=== PATIENT | female | born 1985 ===

== ENCOUNTER 2016-12-11 19:05 | Emergency (ER) | payer MEDICAID ==
[2016-12-11 19:05] VITALS: BMI 32.5
[2016-12-11 19:40] VITALS: BP 140/80; PULSE 70; RESP 17; TEMP 98.1; O2SAT 98
[2016-12-11] MEDS ORDERED: Lactated Ringer's 1,000 ML in Lactated Ringer's 1,000 ML IV STA (20:06)
[2016-12-11] MEDS ORDERED: Dextrose 5%/Lactated Ringer's 1,000 ML IV SCH (20:15)
[2016-12-11 20:26] LABS: RBC URINE 2 /hpf (0-3); URINE BACTERIA FEW (<OCC); URINE BILIRUBIN NEGATIVE (NEGATIVE); URINE BLOOD NEGATIVE (NEGATIVE); URINE COLOR YELLOW (YELLOW); URINE GLUCOSE (UA) NEG (Normal); URINE KETONE NEGATIVE (NEGATIVE); URINE LEUKOCYTE ESTERASE NEG Leu/uL (Negative); URINE PROTEIN NEGATIVE (NEGATIVE); URINE UROBILINOGEN 0.2-1.0 mg/dL (0.2-1.0); WBC URINE 2 /hpf (0-5)
--- NOTE | 2016-12-11 20:37 | ED PDOC ---
HPI: Abdomen Time Seen by Provider: 12/11/16 19:41 Chief Complaint (Nursing): Abdominal Pain Chief Complaint (Provider): Abdominal Pain History Per: Patient History/Exam Limitations: no limitations Onset/Duration Of Symptoms: Days (x1 week), Persistent Outside of [place] travel?: No Current Symptoms Are (Timing): Still Present Severity: Moderate Location Of Pain/Discomfort: Suprapubic (w/radiation to back/bilateral flank) Quality Of Discomfort: Unable To Describe Associated Symptoms: Vomiting (x5 days, 2 episodes/day, non-bilious/non-bloody) , Diarrhea (x5 days, 4-5 episodes/day, non-bloody), Urinary Symptoms (hematuria ; no dysuria/frequency). denies: Other (no vaginal bleeding/discharge) Additional Complaint(s): Maggie Curran is a 31 year old female, with a past medical history inclusive of HTN (medication compliant) and anemia, who presents to the ED on 12/11/16 for the evaluation of moderate suprapubic abdominal pain that she has experienced x1 week. Pain, further described as constant, reportedly radiates into both her back and b/l flanks. Associated non-bilious/non-bloody vomiting (x5 days, 2 episodes/day) and non-bloody diarrhea (x5 days, 4-5 episodes/day) also reported in addition to some hematuria, though she denies fever, chills, dysuria, frequency, vaginal bleeding or discharge. Has taken no medications for symptom relief prior to arrival. Pertinent surgical history includes a cholecystectomy, 2 c-sections and 2 previous ectopic surgeries. Of note, patient presented to [facility] 2 weeks ago for the evaluation of a milder version of this pain, at which time she had been diagnosed with a UTI and was sent home with a Rx for a 1 week course of Cipro. Patient reports having completed the antibiotics with no improvement in symptoms. In addition, though patient's last menstrual period was as of 2 weeks ago it was reportedly both slightly heavier and 1.5 weeks later than usual. PCP: Eddie Melissa Past Medical History Reviewed: Historical Data, Nursing Documentation, Vital Signs Vital Signs: Last Vital Signs Temp 98.1 F 12/11/16 19:37 Pulse 70 12/11/16 19:37 Resp 17 12/11/16 19:37 BP 140/80 12/11/16 19:37 Pulse Ox 98 12/11/16 23:51 - Medical History PMH: Anemia, Anxiety, Asthma, Depression, HTN, Kidney Stones - Surgical History Surgical History: Cholecystectomy, (x2) Other surgeries: ectopic surgery x2 - Family History Family History: States: Unknown Family Hx - Living Arrangements Living Arrangements: With Family - Social History Current smoker - smoking cessation education provided: Yes (cigarettes) Alcohol: Social Drugs: Cannabis (occasional) - Immunization History Hx Tetanus Toxoid Vaccination: Yes Hx Influenza Vaccination: Yes (08/2015) Hx Pneumococcal Vaccination: No - Home Medications Home Medications: Ambulatory Orders Medication Instructions Recorded Cyclobenzaprine [Cyclobenzaprine 10 mg PO TID #15 tab 08/18/16 HCl] Naproxen [Naprosyn Tab] 500 mg PO Q12 #20 tab 08/18/16 oxyCODONE/Acetaminophen [Percocet 1 ea PO QID #20 tab 08/18/16 5/325 mg Tab] Dicyclomine [Bentyl] 20 mg PO BID PRN #30 tab 12/11/16 Omeprazole Magnesium [Prilosec Otc] 20 mg PO DAILY #30 tcp 12/11/16 Ondansetron [Zofran] 4 mg PO Q8H PRN #20 tab 12/11/16 - Allergies Allergies/Adverse Reactions: Allergies Allergy/AdvReac Type Severity Reaction Status Date / Time No Known Allergies Allergy Verified 08/18/16 10:04 Review of Systems ROS Statement: Except As Marked, All Systems Reviewed And Found Negative Constitutional: Negative for: Fever, Chills Gastrointestinal: Positive for: Vomiting, Abdominal Pain (suprapubic w/ radiation to back/bilateral flank), Diarrhea Genitourinary Female: Positive for: Hematuria. Negative for: Dysuria, Frequency , Vaginal Discharge, Vaginal Bleeding Physical Exam - Reviewed Nursing Documentation Reviewed: Yes Vital Signs Reviewed: Yes - Physical Exam Appears: Positive for: Well (well nourished), Non-toxic, In Acute Distress ( mild painful) Head Exam: Positive for: ATRAUMATIC, NORMOCEPHALIC Skin: Positive for: Normal Color, Warm, Dry Eye Exam: Positive for: Normal appearance Cardiovascular/Chest: Positive for: Regular Rate, Rhythm. Negative for: Murmur Respiratory: Positive for: Normal Breath Sounds. Negative for: Respiratory Distress Gastrointestinal/Abdominal: Positive for: Soft, Tenderness (diffuse but worse within LLQ; (-)McBurney's). Negative for: Mass, Distended, Guarding, Rebound Back: Positive for: L CVA Tenderness, R CVA Tenderness. Negative for: Vertebral Tenderness Neurologic/Psych: Positive for: Alert, Oriented - Laboratory Results Result Diagrams: 12/11/16 21:15 12/11/16 21:15 Urine POC: Negative Urine dip results: Negative for: Leukocyte Esterase, Blood, Nitrate, Ketones, Glucose, Bilirubin, Protein - ECG O2 Sat by Pulse Oximetry: 98 (RA) Pulse Ox Interpretation: Normal Medical Decision Making Medical Decision Makin:41 Initial Impression: abdominal pain Differential diagnoses include but are not limited to gastroenteritis, UTI, pyelonephritis, cystitis, colitis, ovarian cyst. Review of previous records indicates that patient has undergone 6 CT A/P's in her lifetime, last of which was negative for any acute findings. Will attempt to avoid further radiation exposure. Initial Plan: * US Abdomen, Complete * US Pelvis * Labs * Lactic Acid, Plasma * PTT * PT * Magnesium * Phosphorus * Upreg * Udip * Urinalysis * Urine Drug Screen * Lactated Ringer's 1000ml at 1000mls/hr * Dextrose 1000ml at 100mls/hr * Pepcid 40mg IVP * Morphine 2mg IVP * Zofran 8g IV * Toradol 30mg IV * Reevaluation Udip and Upreg are negative. 9p Labs unremarkable. BRE Melissa pt's PCP who advises that if ER workup unremarkable, pt can be seen in his office tomorrow at 8am and have same-day GI follow up. EXAM: US Pelvis Complete, Transabdominal. CLINICAL HISTORY: 31 years old, female; Pain; Pelvic pain; Additional info: Abdominal pain; LMP TECHNIQUE: Real-time transabdominal pelvic ultrasound (complete) with image documentation. EXAM DATE/TIME: 12/11/2016 8:08 PM COMPARISON: There are no prior studies for comparison. FINDINGS: Uterus: Uterus measures approximately 11.3 x 4.1 x 5.3 cm. Endometrium measures approximately 6.5 mm. Right ovary: Right ovary measures approximately 3.3 x 1.9 x 2.8 cm.There is expected blood flow on Doppler imaging no Left ovary: Left ovary measures approximately 3.1 x 2.2 x 2.7 cm. There is a small follicle in the left ovary.There is expected blood flow on Doppler imaging Fluid: There is no free fluid. IMPRESSION: Normal pelvic ultrasound Thank you for allowing us to participate in the care of your patient. Dictated and Authenticated by: Vanessa Wilkinson MD 12/11/2016 11:36 PM Eastern Time ([place] & [place]) EXAM: US Abdomen Complete. CLINICAL HISTORY: 31 years old, female; Pain; Abdominal pain; Epigastric TECHNIQUE: Real-time ultrasound of the abdomen (complete) with image documentation. EXAM DATE/TIME: 12/11/2016 8:08 PM COMPARISON: There are no prior studies for comparison. FINDINGS: Liver: Liver appears mildly enlarged. There no focal space-occupying lesions.There is hepatopedal flow in the main portal vein. Gallbladder: Gallbladder is surgically absent. Common bile duct: Common bile duct measures 3.9 mm in diameter. Pancreas: Pancreas is partially obscured by bowel gas. Kidneys: Kidneys are unremarkable. Spleen: Spleen is unremarkable. Aorta: Visualized portions of the aorta and inferior vena cava are unremarkable. Inferior vena cava: See above. IMPRESSION: Prior cholecystectomy, no ductal dilatation; mildly enlarged liver Thank you for allowing us to participate in the care of your patient. Dictated and Authenticated by: Vanessa Wilkinson MD 12/11/2016 11:32 PM Eastern Time ( & Luis) DW pt findings and plan of care. 8am follow up with [facility] and expectant GI followup urgently. Scribe Attestation: Documented by Luz Robles, acting as a scribe for Lida Stevenson MD. Provider Scribe Attestation: All medical record entries made by the Scribe were at my direction and personally dictated by me. I have reviewed the chart and agree that the record accurately reflects my personal performance of the history, physical exam, medical decision making, and the department course for this patient. I have also personally directed, reviewed, and agree with the discharge instructions and disposition. 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 Prescriptions: Dicyclomine [Bentyl] 20 mg PO BID PRN #30 tab PRN Reason: abdominal pain Omeprazole Magnesium [Prilosec Otc] 20 mg PO DAILY #30 tcp Ondansetron [Zofran] 4 mg PO Q8H PRN #20 tab PRN Reason: Nausea/Vomiting Instructions: Abdominal Pain (ED) Forms: [facility] ED School/Work Excuse
[2016-12-11 21:30] LABS: BASO # 0.1 K/uL (0.0-0.2); BASO % 0.7 % (0.0-2.0); EOS # 0.2 K/uL (0.0-0.7); EOS % 1.8 % (0.0-4.0); HEMATOCRIT 39.6 % (34.0-47.0); LYMPH # 2.5 K/uL (1.0-4.3); LYMPH % 29.7 % (20.0-40.0); MEAN CELL VOLUME 96.5 fl (81.0-99.0); MEAN CORPUSCULAR HEMOGLOBIN 32.1 pg (27.0-31.0); MEAN CORPUSCULAR HGB CONC 33.3 g/dL (33.0-37.0); MEAN PLATELET VOLUME 8.5 fl (7.2-11.7); MONO # 0.6 K/uL (0.0-0.8); MONO % 7.6 % (0.0-10.0); NEUT % 60.2 % (50.0-75.0); NRBC % 0.1 % (0.0-0.0); RED CELL DISTRIBUTION WIDTH 12.7 % (11.5-14.5); WHITE BLOOD COUNT 8.3 K/uL (4.8-10.8)
[2016-12-11 21:36] LABS: ALB/GLOB RATIO 1.4 (1.0-2.1); ALKALINE PHOSPHATASE 62 U/L (38-126); ALT/SGPT 35 U/L (9-52); AST/SGOT 27 U/L (14-36); BILIRUBIN,TOTAL 0.2 mg/dl (0.2-1.3); BLOOD UREA NITROGEN 12 mg/dl (7-17); CALCIUM 9.6 mg/dL (8.4-10.2); CARBON DIOXIDE 24 mmol/L (22-30); CHLORIDE 106 mmol/L (98-107); GFR AFRICAN-AMERICAN > 60; GLUCOSE,RANDOM 90 mg/dL (65-105); LIPASE 84 U/L (23-300); MAGNESIUM 2.1 MG/DL (1.6-2.3); PHOSPHOROUS 3.2 mg/dl (2.5-4.5); POTASSIUM 3.8 MMOL/L (3.6-5.0); SODIUM 139 mmol/l (132-148); TOTAL PROTEIN 7.7 G/DL (6.3-8.2)
[2016-12-11 21:56] LABS: PARTIAL THROMBOPLASTIN TIME 28.3 SECONDS (23.3-32.5)
--- NOTE | 2016-12-11 23:32 | US ---
EXAM: US Abdomen Complete. CLINICAL HISTORY: 31 years old, female; Pain; Abdominal pain; Epigastric TECHNIQUE: Real-time ultrasound of the abdomen (complete) with image documentation. EXAM DATE/TIME: 12/11/2016 8:08 PM COMPARISON: There are no prior studies for comparison. FINDINGS: Liver: Liver appears mildly enlarged. There no focal space-occupying lesions.There is hepatopedal flow in the main portal vein. Gallbladder: Gallbladder is surgically absent. Common bile duct: Common bile duct measures 3.9 mm in diameter. Pancreas: Pancreas is partially obscured by bowel gas. Kidneys: Kidneys are unremarkable. Spleen: Spleen is unremarkable. Aorta: Visualized portions of the aorta and inferior vena cava are unremarkable. Inferior vena cava: See above. IMPRESSION: Prior cholecystectomy, no ductal dilatation; mildly enlarged liver
--- NOTE | 2016-12-11 23:37 | US ---
EXAM: US Pelvis Complete, Transabdominal. CLINICAL HISTORY: 31 years old, female; Pain; Pelvic pain; Additional info: Abdominal pain; LMP 12/08/16 TECHNIQUE: Real-time transabdominal pelvic ultrasound (complete) with image documentation. EXAM DATE/TIME: 12/11/2016 8:08 PM COMPARISON: There are no prior studies for comparison. FINDINGS: Uterus: Uterus measures approximately 11.3 x 4.1 x 5.3 cm. Endometrium measures approximately 6.5 mm. Right ovary: Right ovary measures approximately 3.3 x 1.9 x 2.8 cm.There is expected blood flow on Doppler imaging no Left ovary: Left ovary measures approximately 3.1 x 2.2 x 2.7 cm. There is a small follicle in the left ovary.There is expected blood flow on Doppler imaging Fluid: There is no free fluid. IMPRESSION: Normal pelvic ultrasound
== END 2016-12-12 00:08 | disposition home or self-care (01) ==
LOC: H.ER 19:05
DX: R10.9 Unspecified abdominal pain (principal); I10 Essential (primary) hypertension; Z87.442 Personal history of urinary calculi; Z86.59 Personal history of other mental and behavioral disorders; J45.909 Unspecified asthma, uncomplicated

== ENCOUNTER 2017-06-13 09:06 | Observation (INO) | payer MEDICAID ==
[2017-06-13 09:19] VITALS: BP 114/63; PULSE 61; RESP 16; TEMP 98.4; O2SAT 96; BMI 24.0
[2017-06-13] MEDS ORDERED: Sodium Chloride 0.9% 1,000 ML IV STA (10:34)
--- NOTE | 2017-06-13 10:38 | ED PDOC ---
HPI: General Adult Time Seen by Provider: 06/13/17 10:04 Chief Complaint (Nursing): Abdominal Pain History Per: Patient Additional Complaint(s): Pt. states since yesterday she's had cough, congestion, fever, associated with non-bloody vomiting, and non-bloody watery diarrhea. Reports that she does have difficulty breathing but only through her nose as she is congested. States this was worse at night. Also reports that all her children have the same symptoms and were dx with the "stomach flu." Reports her abdominal pain is in the epigastrum and is described as "stabbing." Denies hemoptysis, chest pain, palpitations, melena, hematochezia, BRBPR, hematemesis. Past Medical History Reviewed: Historical Data, Nursing Documentation, Vital Signs Vital Signs: Last Vital Signs Temp 98.4 F 06/13/17 09:18 Pulse 61 06/13/17 09:18 Resp 16 06/13/17 09:18 BP 114/63 06/13/17 09:18 Pulse Ox 96 06/13/17 10:39 - Medical History PMH: Anemia, Anxiety, Asthma, Depression, HTN, Kidney Stones, Chronic Kidney Disease - Surgical History Surgical History: Cholecystectomy, (x2) - Family History Family History: States: No Known Family Hx - Immunization History Hx Tetanus Toxoid Vaccination: No Hx Influenza Vaccination: No Hx Pneumococcal Vaccination: No - Home Medications Home Medications: Ambulatory Orders Medication Instructions Recorded Albuterol HFA 2 puff PO Q6 PRN 03/08/17 Hydrochlorothiazide 12.5 mg PO DAILY 03/08/17 Sulfamethoxazole/Trimethoprim 1 tab PO BID #14 tab 03/11/17 [Bactrim DS 800 mg-160 mg] Amoxicillin/Clavulanate [Augmentin 1 tab PO TID #21 tab 03/19/17 500 MG-125 MG] oxyCODONE/Acetaminophen [Percocet 1 tab PO QID PRN #10 tab 03/19/17 5/325 mg Tab] Ibuprofen [Motrin] 600 mg PO TID #15 tab 03/25/17 Penicillin VK [Pen-Vee K] 2 tab PO BID #28 tab 03/25/17 - Allergies Allergies/Adverse Reactions: Allergies Allergy/AdvReac Type Severity Reaction Status Date / Time No Known Allergies Allergy Verified 03/25/17 16:53 Review of Systems ROS Statement: Except As Marked, All Systems Reviewed And Found Negative Gastrointestinal: Positive for: Nausea, Vomiting, Abdominal Pain, Diarrhea Physical Exam - Reviewed Nursing Documentation Reviewed: Yes Vital Signs Reviewed: Yes - Physical Exam Appears: Positive for: Well, Non-toxic, No Acute Distress Head Exam: Positive for: ATRAUMATIC, NORMAL INSPECTION, NORMOCEPHALIC Skin: Positive for: Normal Color, Warm. Negative for: Rash Eye Exam: Positive for: EOMI, Normal appearance, PERRL ENT: Positive for: Normal ENT Inspection Neck: Positive for: Normal, Painless ROM Cardiovascular/Chest: Positive for: Regular Rate, Rhythm Respiratory: Positive for: CNT, Normal Breath Sounds Gastrointestinal/Abdominal: Positive for: Normal Exam, Bowel Sounds, Soft. Negative for: Tenderness Back: Positive for: Normal Inspection. Negative for: L CVA Tenderness, R CVA Tenderness Extremity: Positive for: Normal ROM Neurologic/Psych: Positive for: Alert, Oriented - Laboratory Results Result Diagrams: 06/13/17 10:30 06/13/17 10:30 - ECG O2 Sat by Pulse Oximetry: 96 ED OBSERVATION Discharge: Yes Date of observation admission: 06/13/17 Time of observation admission: 10:38 - Observation admission statement Patient is being placed in observation because:: abd pain, n/v/d - Progress Note Progress Note: 06/13/17 10:39 Labs ordered. Pepcid 20mg IV, IV NS bolus x 1, zofran 4mg IV ordered. 06/13/17 12:44 Reports feeling much better. Labs were reviewed with patient. Instructed to f/u with [facility] for further evaluation. Disposition - Clinical Impression Clinical Impression: Gastroenteritis, Viral syndrome - Patient ED Disposition Is Patient to be Admitted: No - Disposition Disposition: Routine/Home Disposition Time: 12:45 Condition: IMPROVED
[2017-06-13 11:18] LABS: BASO % 0.3 % (0.0-2.0); EOS % 0.4 % (0.0-4.0); HEMATOCRIT 38.9 % (34.0-47.0); LYMPH % 8.9 % (20.0-40.0); MEAN CELL VOLUME 95.5 fl (81.0-99.0); MEAN CORPUSCULAR HEMOGLOBIN 31.9 pg (27.0-31.0); MEAN CORPUSCULAR HGB CONC 33.4 g/dL (33.0-37.0); MEAN PLATELET VOLUME 8.4 fl (7.2-11.7); MONO # 0.4 K/uL (0.0-0.8); MONO % 3.7 % (0.0-10.0); NEUT # 10.1 K/uL (1.8-7.0); NEUT % 86.7 % (50.0-75.0); PLATELET COUNT 213 K/uL (130-400); RED CELL DISTRIBUTION WIDTH 12.9 % (11.5-14.5); WHITE BLOOD COUNT 11.7 K/uL (4.8-10.8)
[2017-06-13 11:24] LABS: ALB/GLOB RATIO 1.5 (1.0-2.1); ALKALINE PHOSPHATASE 57 U/L (38-126); ALT/SGPT 28 U/L (9-52); AST/SGOT 19 U/L (14-36); BILIRUBIN,TOTAL 0.5 mg/dl (0.2-1.3); BLOOD UREA NITROGEN 11 mg/dl (7-17); CALCIUM 9.4 mg/dL (8.4-10.2); CARBON DIOXIDE 20 mmol/L (22-30); CHLORIDE 108 mmol/L (98-107); GFR AFRICAN-AMERICAN > 60; GLUCOSE,RANDOM 101 mg/dL (65-105); LIPASE 44 U/L (23-300); SODIUM 139 mmol/l (132-148); TOTAL PROTEIN 7.7 G/DL (6.3-8.2)
--- NOTE | 2017-06-13 11:42 | RAD ---
HISTORY: cough COMPARISON: Comparison is made to 04/10/2016 TECHNIQUE: Chest PA and lateral FINDINGS: LUNGS: No active pulmonary disease. PLEURA: No significant pleural effusion identified. No pneumothorax apparent. CARDIOVASCULAR: Normal. OSSEOUS STRUCTURES: No significant abnormalities. VISUALIZED UPPER ABDOMEN: Normal. OTHER FINDINGS: None. IMPRESSION: No radiographic evidence of pneumonia.
[2017-06-13 12:37] LABS: NEUTROPHIL 89 % (42-75); TOTAL CELLS COUNTED 100
--- NOTE | 2017-06-13 16:08 | CARD ---
APPROVED REPORT EKG Measurement Heart [id number] <Conclusion> Normal sinus rhythm with sinus arrhythmia Normal ECG
== END 2017-06-13 13:12 | disposition home or self-care (01) ==
LOC: H.ER 09:06 → H.EROBSV 10:33
PROVIDERS: ADMIT Emergency Medicine; ATTEND Emergency Medicine
DX: A08.4 Viral intestinal infection, unspecified (principal); I12.9 Hypertensive chronic kidney disease with stage 1 through stage 4 chronic kidney disease, or unspecified chronic kidney disease; N18.9 Chronic kidney disease, unspecified; J45.909 Unspecified asthma, uncomplicated; Z79.899 Other long term (current) drug therapy; Z87.442 Personal history of urinary calculi; F41.9 Anxiety disorder, unspecified; F32.89 Other specified depressive episodes; Z90.49 Acquired absence of other specified parts of digestive tract
CPT/HCPCS: 36415; 71020; 80053; 81025; 83690; 85025; 87040; 87070; 87086; 87181; 87430; 87804; 93005; 96374; 96375; 99282; G0378; J2405; J7040

== ENCOUNTER 2017-06-14 06:35 | Observation (INO) | payer MEDICAID ==
[2017-06-14 06:35] VITALS: BMI 24.0
[2017-06-14] MEDS ORDERED: Sodium Chloride 0.9% 1,000 ML IV STA (07:07)
[2017-06-14 07:56] LABS: BASO # 0.1 K/uL (0.0-0.2); BASO % 0.7 % (0.0-2.0); EOS # 0.1 K/uL (0.0-0.7); EOS % 1.1 % (0.0-4.0); HEMATOCRIT 36.4 % (34.0-47.0); LYMPH # 0.7 K/uL (1.0-4.3); LYMPH % 8.8 % (20.0-40.0); MEAN CORPUSCULAR HEMOGLOBIN 32.5 pg (27.0-31.0); MEAN CORPUSCULAR HGB CONC 33.8 g/dL (33.0-37.0); MEAN PLATELET VOLUME 8.5 fl (7.2-11.7); MONO # 0.5 K/uL (0.0-0.8); MONO % 6.7 % (0.0-10.0); NEUT # 6.8 K/uL (1.8-7.0); NEUT % 82.7 % (50.0-75.0); PLATELET COUNT 196 K/uL (130-400); RED CELL DISTRIBUTION WIDTH 12.7 % (11.5-14.5); WHITE BLOOD COUNT 8.2 K/uL (4.8-10.8)
[2017-06-14 08:06] LABS: ALB/GLOB RATIO 1.5 (1.0-2.1); ALKALINE PHOSPHATASE 51 U/L (38-126); ALT/SGPT 27 U/L (9-52); AST/SGOT 16 U/L (14-36); BILIRUBIN,TOTAL 0.5 mg/dl (0.2-1.3); BLOOD UREA NITROGEN 9 mg/dl (7-17); CALCIUM 9.3 mg/dL (8.4-10.2); CARBON DIOXIDE 24 mmol/L (22-30); CHLORIDE 109 mmol/L (98-107); GFR AFRICAN-AMERICAN > 60; GLUCOSE,RANDOM 100 mg/dL (65-105); LIPASE 52 U/L (23-300); POTASSIUM 3.8 MMOL/L (3.6-5.0); SODIUM 142 mmol/l (132-148); TOTAL PROTEIN 7.1 G/DL (6.3-8.2)
[2017-06-14 08:47] LABS: EOSINOPHIL 2 % (0-7); NEUTROPHIL 86 % (42-75); TOTAL CELLS COUNTED 100
[2017-06-14] MEDS ORDERED: Sodium Chloride 0.9% 50 ML IV ONE (09:07)
[2017-06-14] MEDS ORDERED: Iohexol 300 100 ML IJ ONE (09:07)
--- NOTE | 2017-06-14 09:57 | CT ---
PROCEDURE: CT abdomen pelvis dated 06/14/2017 HISTORY: Vomiting and diarrhea. Central abdominal pain COMPARISON: Comparison made with CT scan abdomen pelvis 03/10/2015. TECHNIQUE: Contiguous axial images of the abdomen and pelvis performed following the intravenous injection of approximately 95 cc Omnipaque 300 contrast material. . Coronal and Sagittal reformats generated. Radiation dose: Total exam DLP = 640.23 mGy-cm. This CT exam was performed using one or more of the following dose reduction techniques: Automated exposure control, adjustment of the mA and/or kV according to patient size, and/or use of iterative reconstruction technique. FINDINGS: LOWER THORAX: Lung bases clear. No infiltrate effusion or basilar pneumothorax LIVER: The liver is upper limits of normal/ borderline enlarged approximately 19 cm in CC dimension. Mild diffuse fatty hepatic infiltration. No obvious hepatic mass collection or calcification seen on images presented. There is mild central intrahepatic biliary ductal. . GALLBLADDER AND BILE DUCTS: Status post cholecystectomy with metallic clips in the gallbladder fossa again noted. There is post cholecystectomy dilatation of the common bile duct PANCREAS: The visualized portions of the pancreas appear grossly unremarkable SPLEEN: Unremarkable. No splenomegaly. ADRENALS: Unremarkable. KIDNEYS AND URETERS: Unremarkable. No stone or hydronephrosis. BLADDER: Grossly unremarkable. REPRODUCTIVE: Prominent endometrial canal likely due to pathology secretary phase of the endometrial cycle. There is a small approximately 2.14 x 2.1 cm involuting and or hemorrhagic right ovarian cyst. . Small amount of free fluid is present within the right aspect of the cul de sac. APPENDIX: What is felt to represent the appendix seen on axial image number [id number] - [id number]. No periappendiceal inflammatory changes. BOWEL: Evaluation of the bowel is limited due to the lack of oral contrast material. The stomach is incompletely distended which presumably accounts for slight thick-walled appearance. Gastritis not excluded. Visualized loops of small bowel exhibit normal contour and caliber. No evidence of acute mechanical small bowel obstruction. Moderate amount of stool seen within the at ascending and transverse colon. . There appears be mild wall thickening of a short segment of the proximal transverse colon. In addition, there is mild wall thickening of the sigmoid colon which is likely due to a combination of underdistention, peristalsis and probably some unopacified stool. . The possibility of mild colitis to be excluded; however there are no infiltration changes seen in the adjacent mesentery. Clinical correlation recommended. PERITONEUM: Small amount of free fluid in the right aspect of the cul sac as above LYMPH NODES: Unremarkable. No enlarged lymph nodes. VASCULATURE: Unremarkable. No aortic aneurysm. BONES: Mild multilevel degenerative spondylosis of the lower thoracic and lumbar spine. No acute compression fractures no retropulsed fragments however there are minor chronic appearing anterior stature loss changes of the T11 and to a lesser degree T10 and less of T9 segments OTHER FINDINGS: None. IMPRESSION: Small right-sided involuting or hemorrhagic cyst right ovary. There is also small amount of free fluid seen in the right aspect of the cul de sac. Hepatomegaly and mild fatty hepatic infiltration. . Status post cholecystectomy with mild dilatation of the common bile duct and minimal central intrahepatic biliary ductal dilatation. . There appears be mild wall thickening of a short segment of the proximal transverse colon. In addition, there is mild wall thickening of the sigmoid colon which may be secondary to a combination of underdistention, peristalsis and probably some unopacified stool. . The possibility of a mild colitis to be excluded however there are no infiltration changes seen in the adjacent mesentery. Clinical correlation recommended.
--- NOTE | 2017-06-14 10:01 | ED PDOC ---
HPI: Abdomen Time Seen by Provider: 06/14/17 07:06 Chief Complaint (Nursing): GI Problem Chief Complaint (Provider): vomiting, diarrhea, abd pain History Per: Patient History/Exam Limitations: no limitations Onset/Duration Of Symptoms: Days (2) Current Symptoms Are (Timing): Still Present Severity: Moderate Location Of Pain/Discomfort: Diffuse, Epigastric Quality Of Discomfort: Sharp, Cramping Associated Symptoms: Fever, Chills, Nausea, Diarrhea, Loss Of Appetite, Back Pain Exacerbating Factors: None Alleviating Factors: None Last Bowel Movement: Today Additional Complaint(s): 31yo female represents to ED after being seen yesterday for nausea/vomiting/ diarrhea. States syptoms have worsened, now with central and epigastric abdominal pain, weakness and chills. Past Medical History Reviewed: Historical Data, Nursing Documentation, Vital Signs Vital Signs: Last Vital Signs Temp 98.9 F 06/14/17 06:47 Pulse 88 06/14/17 06:47 Resp 16 06/14/17 06:47 BP 116/75 06/14/17 06:47 Pulse Ox 100 06/14/17 06:47 - Medical History PMH: Anemia, Anxiety, Asthma, Depression, HTN, Kidney Stones, Chronic Kidney Disease - Surgical History Surgical History: Cholecystectomy, (x2) - Family History Family History: States: Unknown Family Hx - Living Arrangements Living Arrangements: With Family - Social History Current smoker - smoking cessation education provided: Yes Alcohol: Occasional Drugs: Denies - Immunization History Hx Tetanus Toxoid Vaccination: No Hx Influenza Vaccination: No Hx Pneumococcal Vaccination: No - Home Medications Home Medications: Ambulatory Orders Medication Instructions Recorded Benzonatate [Tessalon Perle] 100 mg PO Q8 PRN #30 capsule 06/13/17 Famotidine [Pepcid] 20 mg PO DAILY PRN #14 tab 06/13/17 Fluticasone Propionate [Flonase] 2 spr NS DAILY PRN #1 bottle 06/13/17 Ondansetron ODT [Zofran ODT] 4 mg PO TID #21 odt 06/13/17 - Allergies Allergies/Adverse Reactions: Allergies Allergy/AdvReac Type Severity Reaction Status Date / Time No Known Allergies Allergy Verified 06/14/17 06:46 Review of Systems ROS Statement: Except As Marked, All Systems Reviewed And Found Negative Constitutional: Positive for: Fever, Chills ENT: Negative for: Nose Discharge, Throat Pain Cardiovascular: Negative for: Chest Pain, Palpitations Gastrointestinal: Positive for: Nausea, Vomiting, Abdominal Pain, Diarrhea Genitourinary Female: Negative for: Dysuria, Frequency Musculoskeletal: Positive for: Back Pain. Negative for: Shoulder Pain Skin: Negative for: Rash, Lesions, Jaundice Neurological: Positive for: Dizziness. Negative for: Weakness, Numbness, Headache Psych: Negative for: Anxiety Physical Exam - Reviewed Nursing Documentation Reviewed: Yes Vital Signs Reviewed: Yes - Physical Exam Appears: Positive for: Well, Non-toxic, No Acute Distress Head Exam: Positive for: ATRAUMATIC, NORMAL INSPECTION, NORMOCEPHALIC Skin: Positive for: Normal Color, Warm, DRY Eye Exam: Positive for: EOMI, Normal appearance, PERRL ENT: Positive for: Normal ENT Inspection Neck: Positive for: Normal, Painless ROM Cardiovascular/Chest: Positive for: Regular Rate, Rhythm Respiratory: Positive for: CNT, Normal Breath Sounds Gastrointestinal/Abdominal: Positive for: Bowel Sounds, Soft, Tenderness ( epigastric and mid abdomen) Back: Positive for: Normal Inspection Extremity: Positive for: Normal ROM Neurologic/Psych: Positive for: Alert, Oriented. Negative for: Motor/Sensory Deficits - Laboratory Results Result Diagrams: 06/14/17 07:00 06/14/17 07:00 - ECG O2 Sat by Pulse Oximetry: 100 Medical Decision Making Medical Decision Making: workup initiated for persistent gastrointestinal symptoms now with pain. Chart from yesterday reviewed. CT abd/pelv ordered. Disposition - Disposition
[2017-06-14] MEDS ORDERED: Ciprofloxacin 400mg/200ml D5W 400 MG/200 ML BAG IVPB STA (10:04)
[2017-06-14] MEDS ORDERED: Sodium Chloride 0.9% 1,000 ML IV SCH (12:30)
[2017-06-14] MEDS ORDERED: Ciprofloxacin 400mg/200ml D5W 400 MG/200 ML BAG IVPB ONE (13:20)
[2017-06-14 15:31] VITALS: BP 125/78; PULSE 87; RESP 20; TEMP 98.5; O2SAT 98
[2017-06-14] MEDS ORDERED: metroNIDAZOLE 500mg/100ml NS 100 ML IVPB SCH (17:00)
--- NOTE | 2017-06-14 18:15 | CP.PCM.HP ---
History of Present Illness - History of Present Illness History of Present Illness: pt signed ama prior to being seen Present on Admission - Present on Admission Any Indicators Present on Admission: No Past Patient History - Infectious Disease Hx of Infectious Diseases: None - Past Medical History & Family History Past Medical History?: Yes - Past Social History Smoking Status: Light Smoker < 10 Cigarettes Daily - CARDIAC Hx Cardiac Disorders: Yes - PULMONARY Hx Asthma: Yes - NEUROLOGICAL Hx Neurological Disorder: No - HEENT Hx HEENT Problems: No - RENAL Hx Chronic Kidney Disease: Yes - ENDOCRINE/METABOLIC Hx Endocrine Disorders: No - HEMATOLOGICAL/ONCOLOGICAL Hx Anemia: Yes - INTEGUMENTARY Hx Dermatological Problems: No - MUSCULOSKELETAL/RHEUMATOLOGICAL Hx Musculoskeletal Disorders: Yes Hx Falls: Yes Other/Comment: bone spurs foot - GASTROINTESTINAL Hx Gastrointestinal Disorders: No - GENITOURINARY/GYNECOLOGICAL Hx Genitourinary Disorders: Yes (SEE COMMENT) Hx Urinary Tract Infection: Yes Other/Comment: ectopic x 2 - PSYCHIATRIC Hx Anxiety: Yes Hx Depression: Yes Hx Substance Use: No - SURGICAL HISTORY Hx Cholecystectomy: Yes - ANESTHESIA Hx Anesthesia: Yes Hx Anesthesia Reactions: No Meds Allergies/Adverse Reactions: Allergies Allergy/AdvReac Type Severity Reaction Status Date / Time No Known Allergies Allergy Verified 06/14/17 06:46 Results - Vital Signs Recent Vital Signs: Last Vital Signs Temp 98.5 F 06/14/17 15:30 Pulse 87 06/14/17 15:30 Resp 20 06/14/17 15:30 BP 125/78 06/14/17 15:30 Pulse Ox 98 06/14/17 15:30 - Labs Result Diagrams: 06/14/17 07:00 06/14/17 07:00 Labs: Laboratory Results - last 24 hr 06/14/17 06/14/17 06/14/17 07:00 07:00 09:00 WBC 8.2 RBC 3.80 Hgb 12.3 Hct 36.4 MCV 96.0 MCH 32.5 H MCHC 33.8 RDW 12.7 Plt Count 196 MPV 8.5 Neut % (Auto) 82.7 H Lymph % (Auto) 8.8 L [place] % (Auto) 6.7 Eos % (Auto) 1.1 Baso % (Auto) 0.7 Neut # 6.8 Lymph # 0.7 L [place] # 0.5 Eos # 0.1 Baso # 0.1 Neutrophils % (Manual) 86 H Lymphocytes % (Manual) 5 L Monocytes % (Manual) 7 Eosinophils % (Manual) 2 Platelet Estimate Normal Anisocytosis (manual) Slight Sodium 142 Potassium 3.8 Chloride 109 H Carbon Dioxide 24 Anion Gap 13 BUN 9 Creatinine 0.7 Est GFR ( Amer) > 60 Est GFR (Non-Af Amer) > 60 Random Glucose 100 Calcium 9.3 Total Bilirubin 0.5 AST 16 ALT 27 Alkaline Phosphatase 51 Total Protein 7.1 Albumin 4.3 Globulin 2.8 Albumin/Globulin Ratio 1.5 Lipase 52 Urine Opiates Screen Negative Urine Methadone Screen Negative Ur Barbiturates Screen Negative Ur Phencyclidine Scrn Negative Ur Amphetamines Screen Negative U Benzodiazepines Scrn Negative U Oth Cocaine Metabols Negative U Cannabinoids Screen Positive H Decision To Admit - Pt Status Changed To: Hospital Disposition Of: Observation - . Bed Request Type: Med/Surg Admitting Physician: Ethel Dong
--- NOTE | 2017-06-14 18:16 | CP.PCM.DIS ---
Provider - Provider Date of Admission: 06/14/17 10:47 Attending physician: Ethel Dong MD Time Spent in preparation of Discharge (in minutes): 0 Hospital Course - Lab Results Lab Results: Most Recent Lab Values WBC 8.2 K/uL (4.8-10.8) 06/14/17 07:00 RBC 3.80 Mil/uL (3.80-5.20) 06/14/17 07:00 Hgb 12.3 g/dL (12.0-16.0) 06/14/17 07:00 Hct 36.4 % (34.0-47.0) 06/14/17 07:00 MCV 96.0 fl (81.0-99.0) 06/14/17 07:00 MCH 32.5 pg (27.0-31.0) H 06/14/17 07:00 MCHC 33.8 g/dL (33.0-37.0) 06/14/17 07:00 RDW 12.7 % (11.5-14.5) 06/14/17 07:00 Plt Count 196 K/uL (130-400) 06/14/17 07:00 MPV 8.5 fl (7.2-11.7) 06/14/17 07:00 Neut % (Auto) 82.7 % (50.0-75.0) H 06/14/17 07:00 Lymph % (Auto) 8.8 % (20.0-40.0) L 06/14/17 07:00 [place] % (Auto) 6.7 % (0.0-10.0) 06/14/17 07:00 Eos % (Auto) 1.1 % (0.0-4.0) 06/14/17 07:00 Baso % (Auto) 0.7 % (0.0-2.0) 06/14/17 07:00 Neut # 6.8 K/uL (1.8-7.0) 06/14/17 07:00 Lymph # 0.7 K/uL (1.0-4.3) L 06/14/17 07:00 [place] # 0.5 K/uL (0.0-0.8) 06/14/17 07:00 Eos # 0.1 K/uL (0.0-0.7) 06/14/17 07:00 Baso # 0.1 K/uL (0.0-0.2) 06/14/17 07:00 Neutrophils % (Manual) 86 % (42-75) H 06/14/17 07:00 Lymphocytes % (Manual) 5 % (20-50) L 06/14/17 07:00 Monocytes % (Manual) 7 % (0-10) 06/14/17 07:00 Eosinophils % (Manual) 2 % (0-7) 06/14/17 07:00 Platelet Estimate Normal (NORMAL) 06/14/17 07:00 Anisocytosis (manual) Slight 06/14/17 07:00 Sodium 142 mmol/l (132-148) 06/14/17 07:00 Potassium 3.8 MMOL/L (3.6-5.0) 06/14/17 07:00 Chloride 109 mmol/L (98-107) H 06/14/17 07:00 Carbon Dioxide 24 mmol/L (22-30) 06/14/17 07:00 Anion Gap 13 (10-20) 06/14/17 07:00 BUN 9 mg/dl (7-17) 06/14/17 07:00 Creatinine 0.7 mg/dL (0.7-1.2) 06/14/17 07:00 Est GFR ( Amer) > 60 06/14/17 07:00 Est GFR (Non-Af Amer) > 60 06/14/17 07:00 Random Glucose 100 mg/dL (65-105) 06/14/17 07:00 Calcium 9.3 mg/dL (8.4-10.2) 06/14/17 07:00 Total Bilirubin 0.5 mg/dl (0.2-1.3) 06/14/17 07:00 AST 16 U/L (14-36) 06/14/17 07:00 ALT 27 U/L (9-52) 06/14/17 07:00 Alkaline Phosphatase 51 U/L (38-126) 06/14/17 07:00 Total Protein 7.1 G/DL (6.3-8.2) 06/14/17 07:00 Albumin 4.3 g/dL (3.5-5.0) 06/14/17 07:00 Globulin 2.8 gm/dL (2.2-3.9) 06/14/17 07:00 Albumin/Globulin Ratio 1.5 (1.0-2.1) 06/14/17 07:00 Lipase 52 U/L (23-300) 06/14/17 07:00 Urine Opiates Screen Negative (NEGATIVE) 06/14/17 09:00 Urine Methadone Screen Negative (NEGATIVE) 06/14/17 09:00 Ur Barbiturates Screen Negative (NEGATIVE) 06/14/17 09:00 Ur Phencyclidine Scrn Negative (NEGATIVE) 06/14/17 09:00 Ur Amphetamines Screen Negative (NEGATIVE) 06/14/17 09:00 U Benzodiazepines Scrn Negative (NEGATIVE) 06/14/17 09:00 U Oth Cocaine Metabols Negative (NEGATIVE) 06/14/17 09:00 U Cannabinoids Screen Positive (NEGATIVE) H 06/14/17 09:00 Discharge Exam - Head Exam Head Exam: ATRAUMATIC, NORMAL INSPECTION, NORMOCEPHALIC Discharge Plan - Follow Up Plan Condition: FAIR Disposition: AGAINST MEDICAL ADVICE Instructions: Abdominal Pain (ED) Additional Instructions: pt signed ama prior to being seen
[2017-06-14] MEDS ORDERED: Ciprofloxacin 400mg/200ml D5W 400 MG/200 ML BAG IVPB SCH (21:00)
--- NOTE | 2017-06-15 13:25 | CARD ---
APPROVED REPORT EKG Measurement Heart [id number] <Conclusion> Normal sinus rhythm Normal ECG
== END 2017-06-14 16:15 | disposition left against medical advice (07) ==
LOC: H.ER 06:35 → H.EROBSV 10:47 → H.ERHOLD 12:01 → H.MEDSURG1 14:15
PROVIDERS: ADMIT Family Medicine; ATTEND Family Medicine
DX: R10.13 Epigastric pain (principal); F41.9 Anxiety disorder, unspecified; J45.909 Unspecified asthma, uncomplicated; F32.9 Major depressive disorder, single episode, unspecified; I12.9 Hypertensive chronic kidney disease with stage 1 through stage 4 chronic kidney disease, or unspecified chronic kidney disease; N18.9 Chronic kidney disease, unspecified; F17.200 Nicotine dependence, unspecified, uncomplicated
CPT/HCPCS: 74177; 80053; 80324; 80345; 80346; 80349; 80353; 80358; 80361; 81025; 83690; 83992; 85025; 93005; 96372; 99285; G0378; J0744; J1630; J1885; J2270; J2405; J7040; Q9967

== ENCOUNTER 2017-06-14 20:15 | Observation (INO) | payer MEDICAID ==
[2017-06-14 20:15] VITALS: BMI 24.0
[2017-06-14] MEDS ORDERED: DiphenhydrAMINE 50 mg/ml Inj IV STA (20:51)
[2017-06-14] MEDS ORDERED: Sodium Chloride 0.9% 1,000 ML IV STA (20:52)
--- NOTE | 2017-06-14 21:11 | ED PDOC ---
HPI: Abdomen Time Seen by Provider: 06/14/17 20:20 Chief Complaint (Nursing): Back Pain Chief Complaint (Provider): abdominal pain History Per: Patient History/Exam Limitations: no limitations Onset/Duration Of Symptoms: Hrs (x4) Current Symptoms Are (Timing): Still Present Additional Complaint(s): Maggie Curran is a 31 year old female with previous medical history of hypertension and anxiety, who presents to the emergency department with a complaint of abdominal pain associated with generalized body aches ongoing since patient was admitted to [facility] 4 hours ago but had left AMA due to not having childcare arrangements for her children. Patient stated she was given unknown IV medication in hospital and has since been feeling discomfort. PMD: Eddie Melissa MD Past Medical History Reviewed: Historical Data, Nursing Documentation, Vital Signs Vital Signs: Last Vital Signs Temp 98.4 F 06/15/17 00:14 Pulse 61 06/15/17 00:14 Resp 19 06/15/17 00:14 BP 128/76 06/15/17 00:14 Pulse Ox 100 06/15/17 00:14 - Medical History PMH: Anemia, Anxiety, Asthma, Depression, HTN, Kidney Stones, Chronic Kidney Disease - Surgical History Surgical History: Cholecystectomy, (x2) - Family History Family History: States: No Known Family Hx - Social History Current smoker - smoking cessation education provided: Yes Ex-Smoker (has not smoked in the last 12 months): No Alcohol: None Drugs: Denies - Immunization History Hx Tetanus Toxoid Vaccination: No Hx Influenza Vaccination: No Hx Pneumococcal Vaccination: No - Home Medications Home Medications: Ambulatory Orders Medication Instructions Recorded Albuterol 0.042% [Albuterol 0.042% 3 ml INH DAILY PRN 06/14/17 Inhal Shell (1.25mg/3ml) UD] Benazepril/Hydrochlorothiazide 12.5 mg PO DAILY 06/14/17 [Benazepril-Hctz 5-6.25 mg Tab] Zolpidem [Ambien] 10 mg PO DAILY 06/14/17 - Allergies Allergies/Adverse Reactions: Allergies Allergy/AdvReac Type Severity Reaction Status Date / Time No Known Allergies Allergy Verified 06/14/17 06:46 Review of Systems ROS Statement: Except As Marked, All Systems Reviewed And Found Negative Constitutional: Positive for: Other (general body aches). Negative for: Fever, Chills Gastrointestinal: Positive for: Abdominal Pain Physical Exam - Reviewed Nursing Documentation Reviewed: Yes Vital Signs Reviewed: Yes - Physical Exam Appears: Positive for: Well, Non-toxic, Uncomfortable Head Exam: Positive for: ATRAUMATIC, NORMAL INSPECTION, NORMOCEPHALIC Cardiovascular/Chest: Positive for: Regular Rate, Rhythm. Negative for: Chest Non Tender Respiratory: Positive for: Normal Breath Sounds, Accessory Muscle Use. Negative for: Decreased Breath Sounds, Respiratory Distress Gastrointestinal/Abdominal: Positive for: Soft, Tenderness (mild epigastric). Negative for: Normal Exam, Mass Back: Positive for: Normal Inspection. Negative for: L CVA Tenderness, R CVA Tenderness Extremity: Positive for: Normal ROM. Negative for: Tenderness, Pedal Edema, Deformity Neurologic/Psych: Positive for: Alert, Oriented, Mood/Affect (anxious and agitated) - Laboratory Results Result Diagrams: 06/14/17 21:14 06/14/17 21:14 - ECG O2 Sat by Pulse Oximetry: 100 (RA) Pulse Ox Interpretation: Normal Medical Decision Making Medical Decision Making: Initial Impression: Abdominal pain; Possible dystonic reaction Initial Plan: * Alcohol serum * CMP * Creatine phophokinase * Drug screen, urine * Lipase * Urine dipstick * Urine * CBC * Benadryl 50mg IV * NS 1,000ml IV per 1,000mls/hr * Admit to hospital Time: 2144 --Discussed case with Eddie Melissa, nurse practitioner. --Patient placed on hospital observation. Clinical Impression: Abdominal pain Scribe Attestation: Documented by Constance Claudio, acting as a scribe for Krishna Seo MD. Provider Scribe Attestation: All medical record entries made by the Scribe were at my direction and personally dictated by me. I have reviewed the chart and agree that the record accurately reflects my personal performance of the history, physical exam, medical decision making, and the department course for this patient. I have also personally directed, reviewed, and agree with the discharge instructions and disposition. Disposition - Clinical Impression Clinical Impression: Abdominal pain - Patient ED Disposition Is Patient to be Admitted: Yes Discussed With Dr.: Eddie Melissa Doctor Will See Patient In The: Hospital Counseled Patient/Family Regarding: Studies Performed, Diagnosis - Disposition Disposition Time: 20:52 Condition: FAIR - Pt Status Changed To: Hospital Disposition Of: Observation
[2017-06-14 21:17] LABS: BASO # 0.1 K/uL (0.0-0.2); BASO % 0.8 % (0.0-2.0); EOS # 0.1 K/uL (0.0-0.7); EOS % 0.7 % (0.0-4.0); HEMATOCRIT 34.6 % (34.0-47.0); LYMPH % 14.5 % (20.0-40.0); MEAN CORPUSCULAR HGB CONC 33.7 g/dL (33.0-37.0); MEAN PLATELET VOLUME 7.8 fl (7.2-11.7); MONO # 0.7 K/uL (0.0-0.8); MONO % 10.4 % (0.0-10.0); NEUT # 5.1 K/uL (1.8-7.0); NEUT % 73.6 % (50.0-75.0); RED CELL DISTRIBUTION WIDTH 12.8 % (11.5-14.5); WHITE BLOOD COUNT 6.9 K/uL (4.8-10.8)
[2017-06-14] MEDS ORDERED: Ciprofloxacin 400mg/200ml D5W 400 MG/200 ML BAG IVPB ONE (21:29)
[2017-06-14 21:31] LABS: ALB/GLOB RATIO 1.5 (1.0-2.1); ALCOHOL SERUM < 10 mg/dl (0-10); ALKALINE PHOSPHATASE 52 U/L (38-126); ALT/SGPT 28 U/L (9-52); AST/SGOT 19 U/L (14-36); BLOOD UREA NITROGEN 5 mg/dl (7-17); CALCIUM 8.9 mg/dL (8.4-10.2); CARBON DIOXIDE 23 mmol/L (22-30); CHLORIDE 106 mmol/L (98-107); GFR AFRICAN-AMERICAN > 60; GLUCOSE,RANDOM 93 mg/dL (65-105); LIPASE 31 U/L (23-300); SODIUM 142 mmol/l (132-148); TOTAL PROTEIN 6.9 G/DL (6.3-8.2)
[2017-06-14] MEDS: Ciprofloxacin 400mg/200ml D5W 400 MG/200 ML BAG IVPB SCH (21:34)
[2017-06-14 21:36] LABS: POTASSIUM 3.2 MMOL/L (3.6-5.0)
[2017-06-14 21:46] LABS: BILIRUBIN,TOTAL 0.5 mg/dl (0.2-1.3)
[2017-06-14] MEDS: Sodium Chloride 0.9% 1,000 ML IV SCH (22:21)
[2017-06-15] MEDS ORDERED: metroNIDAZOLE 500mg/100ml NS 100 ML IVPB SCH (01:00)
[2017-06-15] MEDS: Sodium Chloride 0.9% 1,000 ML IV SCH ×2 (06:41→14:59)
[2017-06-15 08:08] LABS: BASO % 0.5 % (0.0-2.0); EOS # 0.1 K/uL (0.0-0.7); EOS % 2.2 % (0.0-4.0); HEMATOCRIT 32.6 % (34.0-47.0); LYMPH % 18.2 % (20.0-40.0); MEAN CELL VOLUME 95.8 fl (81.0-99.0); MEAN CORPUSCULAR HGB CONC 33.4 g/dL (33.0-37.0); MEAN PLATELET VOLUME 8.6 fl (7.2-11.7); MONO # 0.7 K/uL (0.0-0.8); MONO % 12.3 % (0.0-10.0); NEUT # 3.9 K/uL (1.8-7.0); NEUT % 66.8 % (50.0-75.0); NRBC % 0.1 % (0.0-0.0); RED CELL DISTRIBUTION WIDTH 12.7 % (11.5-14.5); WHITE BLOOD COUNT 5.8 K/uL (4.8-10.8)
[2017-06-15 08:16] LABS: ALB/GLOB RATIO 1.4 (1.0-2.1); ALKALINE PHOSPHATASE 48 U/L (38-126); ALT/SGPT 26 U/L (9-52); AST/SGOT 16 U/L (14-36); BILIRUBIN,TOTAL 0.5 mg/dl (0.2-1.3); BLOOD UREA NITROGEN 5 mg/dl (7-17); CALCIUM 8.5 mg/dL (8.4-10.2); CARBON DIOXIDE 22 mmol/L (22-30); CHLORIDE 109 mmol/L (98-107); GFR AFRICAN-AMERICAN > 60; GLUCOSE,RANDOM 84 mg/dL (65-105); POTASSIUM 3.4 MMOL/L (3.6-5.0); SODIUM 142 mmol/l (132-148); TOTAL PROTEIN 6.2 G/DL (6.3-8.2)
[2017-06-15] MEDS: DiphenhydrAMINE 50 mg/ml Inj IVP PRN ×2 (09:01→15:30)
[2017-06-15] MEDS ORDERED: Potassium Chloride 20 mEq ER Tab PO ONE (09:30)
--- NOTE | 2017-06-15 09:33 | CP.PCM.HP ---
History of Present Illness - History of Present Illness History of Present Illness: pt admitted for eps and n/v. eps after reglan. no f/c, n/v//d at present. no pain. diffuse abd tenderness. children w/ similar complaint. no tremor at present states last night had hold body shaking Present on Admission - Present on Admission Any Indicators Present on Admission: No Review of Systems - Gastrointestinal Gastrointestinal: As Per HPI, Cramping, Nausea, Vomiting Past Patient History - Infectious Disease Hx of Infectious Diseases: None - Past Medical History & Family History Past Medical History?: Yes - Past Social History Alcohol: None Drugs: Denies - CARDIAC Hx Hypertension: Yes - PULMONARY Hx Asthma: Yes - NEUROLOGICAL Hx Neurological Disorder: No - HEENT Hx HEENT Problems: No - RENAL Hx Chronic Kidney Disease: Yes Hx Kidney Stones: Yes - ENDOCRINE/METABOLIC Hx Endocrine Disorders: No - HEMATOLOGICAL/ONCOLOGICAL Hx Anemia: Yes - INTEGUMENTARY Hx Dermatological Problems: No - MUSCULOSKELETAL/RHEUMATOLOGICAL Hx Falls: Yes - GASTROINTESTINAL Hx Gastrointestinal Disorders: No - GENITOURINARY/GYNECOLOGICAL Hx Genitourinary Disorders: Yes (SEE COMMENT) Hx Urinary Tract Infection: Yes Other/Comment: ectopic x 2 - PSYCHIATRIC Hx Anxiety: Yes Hx Depression: Yes - SURGICAL HISTORY Hx Cholecystectomy: Yes - ANESTHESIA Hx Anesthesia: Yes Hx Anesthesia Reactions: No Meds Home Medications: Home Medication List Medication Instructions Recorded Confirmed Type Ciprofloxacin HCl [Cipro] 500 mg PO BID #14 tablet 06/15/17 Rx Dicyclomine [Bentyl] 20 mg PO Q6 PRN #20 tab 06/15/17 Rx Famotidine [Pepcid] 40 mg PO DAILY #20 tablet 06/15/17 Rx Ondansetron ODT [Zofran ODT] 4 mg PO Q8 PRN #20 odt 06/15/17 Rx metroNIDAZOLE [Flagyl] 500 mg PO Q8 #21 tab 06/15/17 Rx Allergies/Adverse Reactions: Allergies Allergy/AdvReac Type Severity Reaction Status Date / Time No Known Allergies Allergy Verified 06/14/17 06:46 Physical Exam - Constitutional Appears: Well, Non-toxic, No Acute Distress - Head Exam Head Exam: ATRAUMATIC, NORMAL INSPECTION, NORMOCEPHALIC - Eye Exam Eye Exam: EOMI, Normal appearance, PERRL Pupil Exam: NORMAL ACCOMODATION, PERRL - ENT Exam ENT Exam: Mucous Membranes Moist, Normal Exam - Neck Exam Neck exam: Positive for: Normal Inspection - Respiratory Exam Respiratory Exam: Clear to Auscultation Bilateral, NORMAL BREATHING PATTERN - Cardiovascular Exam Cardiovascular Exam: REGULAR RHYTHM, RRR, +S1, +S2 - GI/Abdominal Exam GI & Abdominal Exam: Normal Bowel Sounds, Soft. absent: Tenderness - Exam Bimanual exam: NORMAL BIMANUAL EXAM - Extremities Exam Extremities exam: Positive for: full ROM, normal capillary refill, normal inspection, pedal pulses present - Back Exam Back exam: NORMAL INSPECTION - Neurological Exam Neurological exam: Alert, CN II-XII Intact, Normal Gait, Oriented x3, Reflexes Normal - Psychiatric Exam Psychiatric exam: Normal Affect, Normal Mood - Skin Skin Exam: Dry, Intact, Normal Color, Warm Results - Vital Signs Recent Vital Signs: Last Vital Signs Temp 98.4 F 06/15/17 00:14 Pulse 61 06/15/17 00:14 Resp 19 06/15/17 00:14 BP 128/76 06/15/17 00:14 Pulse Ox 100 06/15/17 01:39 - Labs Result Diagrams: 06/15/17 07:45 06/15/17 06:30 Labs: Laboratory Results - last 24 hr 06/14/17 06/14/17 06/14/17 21:14 21:14 22:20 WBC 6.9 RBC 3.64 L Hgb 11.6 L Hct 34.6 MCV 95.0 MCH 32.0 H MCHC 33.7 RDW 12.8 Plt Count 187 MPV 7.8 Neut % (Auto) 73.6 Lymph % (Auto) 14.5 L [place] % (Auto) 10.4 H Eos % (Auto) 0.7 Baso % (Auto) 0.8 Neut # 5.1 Lymph # 1.0 [place] # 0.7 Eos # 0.1 Baso # 0.1 Sodium 142 Potassium 3.2 L Chloride 106 Carbon Dioxide 23 Anion Gap 16 BUN 5 L Creatinine 0.6 L Est GFR ( Amer) > 60 Est GFR (Non-Af Amer) > 60 Random Glucose 93 Calcium 8.9 Total Bilirubin 0.5 AST 19 ALT 28 Alkaline Phosphatase 52 Total Creatine Kinase 107 Total Protein 6.9 Albumin 4.2 Globulin 2.8 Albumin/Globulin Ratio 1.5 Lipase 31 Urine Opiates Screen Positive H Urine Methadone Screen Negative Ur Barbiturates Screen Negative Ur Phencyclidine Scrn Negative Ur Amphetamines Screen Negative U Benzodiazepines Scrn Negative U Oth Cocaine Metabols Negative U Cannabinoids Screen Positive H Alcohol, Quantitative < 10 06/15/17 06/15/17 06:30 07:45 WBC 5.8 RBC 3.41 L Hgb 10.9 L Hct 32.6 L MCV 95.8 MCH 32.0 H MCHC 33.4 RDW 12.7 Plt Count 175 MPV 8.6 Neut % (Auto) 66.8 Lymph % (Auto) 18.2 L [place] % (Auto) 12.3 H Eos % (Auto) 2.2 Baso % (Auto) 0.5 Neut # 3.9 Lymph # 1.0 [place] # 0.7 Eos # 0.1 Baso # 0.0 Sodium 142 Potassium 3.4 L Chloride 109 H Carbon Dioxide 22 Anion Gap 14 BUN 5 L Creatinine 0.6 L Est GFR ( Amer) > 60 Est GFR (Non-Af Amer) > 60 Random Glucose 84 Calcium 8.5 Total Bilirubin 0.5 AST 16 ALT 26 Alkaline Phosphatase 48 Total Creatine Kinase Total Protein 6.2 L Albumin 3.6 Globulin 2.6 Albumin/Globulin Ratio 1.4 Lipase Urine Opiates Screen Urine Methadone Screen Ur Barbiturates Screen Ur Phencyclidine Scrn Ur Amphetamines Screen U Benzodiazepines Scrn U Oth Cocaine Metabols U Cannabinoids Screen Alcohol, Quantitative Assessment & Plan (1) Dystonic drug reaction Assessment and Plan: benadryl no reglan to be given Status: Acute (2) DVT prophylaxis Assessment and Plan: scd and ae hose ambulation Status: Acute (3) Colitis Assessment and Plan: bentyl, zofran, pepcid cipro/flagyl toradol liquid, adv as jose Status: Acute Decision To Admit - Pt Status Changed To: Hospital Disposition Of: Observation - . Bed Request Type: Med/Surg Admitting Physician: Ethel Dong
[2017-06-15] MEDS: Ciprofloxacin 400mg/200ml D5W 400 MG/200 ML BAG IVPB SCH (10:57)
[2017-06-15 16:09] VITALS: BP 105/66; PULSE 61; RESP 18; TEMP 98.2; O2SAT 99
--- NOTE | 2017-06-17 08:37 | CP.PCM.DIS ---
Provider - Provider Date of Admission: 06/14/17 20:52 Attending physician: Ethel Dong MD Time Spent in preparation of Discharge (in minutes): 15 Diagnosis - Discharge Diagnosis (1) Dystonic drug reaction Status: Acute (2) DVT prophylaxis Status: Acute (3) Colitis Status: Acute Hospital Course - Lab Results Lab Results: Most Recent Lab Values WBC 5.8 K/uL (4.8-10.8) 06/15/17 07:45 RBC 3.41 Mil/uL (3.80-5.20) L 06/15/17 07:45 Hgb 10.9 g/dL (12.0-16.0) L 06/15/17 07:45 Hct 32.6 % (34.0-47.0) L 06/15/17 07:45 MCV 95.8 fl (81.0-99.0) 06/15/17 07:45 MCH 32.0 pg (27.0-31.0) H 06/15/17 07:45 MCHC 33.4 g/dL (33.0-37.0) 06/15/17 07:45 RDW 12.7 % (11.5-14.5) 06/15/17 07:45 Plt Count 175 K/uL (130-400) 06/15/17 07:45 MPV 8.6 fl (7.2-11.7) 06/15/17 07:45 Neut % (Auto) 66.8 % (50.0-75.0) 06/15/17 07:45 Lymph % (Auto) 18.2 % (20.0-40.0) L 06/15/17 07:45 [place] % (Auto) 12.3 % (0.0-10.0) H 06/15/17 07:45 Eos % (Auto) 2.2 % (0.0-4.0) 06/15/17 07:45 Baso % (Auto) 0.5 % (0.0-2.0) 06/15/17 07:45 Neut # 3.9 K/uL (1.8-7.0) 06/15/17 07:45 Lymph # 1.0 K/uL (1.0-4.3) 06/15/17 07:45 [place] # 0.7 K/uL (0.0-0.8) 06/15/17 07:45 Eos # 0.1 K/uL (0.0-0.7) 06/15/17 07:45 Baso # 0.0 K/uL (0.0-0.2) 06/15/17 07:45 Sodium 142 mmol/l (132-148) 06/15/17 06:30 Potassium 3.4 MMOL/L (3.6-5.0) L 06/15/17 06:30 Chloride 109 mmol/L (98-107) H 06/15/17 06:30 Carbon Dioxide 22 mmol/L (22-30) 06/15/17 06:30 Anion Gap 14 (10-20) 06/15/17 06:30 BUN 5 mg/dl (7-17) L 06/15/17 06:30 Creatinine 0.6 mg/dL (0.7-1.2) L 06/15/17 06:30 Est GFR ( Amer) > 60 06/15/17 06:30 Est GFR (Non-Af Amer) > 60 06/15/17 06:30 Random Glucose 84 mg/dL (65-105) 06/15/17 06:30 Calcium 8.5 mg/dL (8.4-10.2) 06/15/17 06:30 Total Bilirubin 0.5 mg/dl (0.2-1.3) 06/15/17 06:30 AST 16 U/L (14-36) 06/15/17 06:30 ALT 26 U/L (9-52) 06/15/17 06:30 Alkaline Phosphatase 48 U/L (38-126) 06/15/17 06:30 Total Creatine Kinase 107 U/L (30-135) 06/14/17 21:14 Total Protein 6.2 G/DL (6.3-8.2) L 06/15/17 06:30 Albumin 3.6 g/dL (3.5-5.0) 06/15/17 06:30 Globulin 2.6 gm/dL (2.2-3.9) 06/15/17 06:30 Albumin/Globulin Ratio 1.4 (1.0-2.1) 06/15/17 06:30 Lipase 31 U/L (23-300) 06/14/17 21:14 Urine Opiates Screen Positive (NEGATIVE) H 06/14/17 22:20 Urine Methadone Screen Negative (NEGATIVE) 06/14/17 22:20 Ur Barbiturates Screen Negative (NEGATIVE) 06/14/17 22:20 Ur Phencyclidine Scrn Negative (NEGATIVE) 06/14/17 22:20 Ur Amphetamines Screen Negative (NEGATIVE) 06/14/17 22:20 U Benzodiazepines Scrn Negative (NEGATIVE) 06/14/17 22:20 U Oth Cocaine Metabols Negative (NEGATIVE) 06/14/17 22:20 U Cannabinoids Screen Positive (NEGATIVE) H 06/14/17 22:20 Alcohol, Quantitative < 10 mg/dl (0-10) 06/14/17 21:14 Discharge Exam - Head Exam Head Exam: ATRAUMATIC, NORMAL INSPECTION, NORMOCEPHALIC Discharge Plan - Discharge Medications Prescriptions: Ciprofloxacin HCl [Cipro] 500 mg PO BID #14 tablet Dicyclomine [Bentyl] 20 mg PO Q6 PRN #20 tab PRN Reason: abd cramping Famotidine [Pepcid] 40 mg PO DAILY #20 tablet metroNIDAZOLE [Flagyl] 500 mg PO Q8 #21 tab Ondansetron ODT [Zofran ODT] 4 mg PO Q8 PRN #20 odt PRN Reason: Nausea/Vomiting - Follow Up Plan Condition: FAIR Disposition: HOME/ ROUTINE Additional Instructions: pt feeling better. nof /,c n/v/d. no abd pain. jose po fianl dx-age, n/v, dystonia no dystonia noted
== END 2017-06-15 17:55 | disposition home or self-care (01) ==
LOC: H.ER 20:15 → H.ERHOLD 20:52 → H.MEDSURG1 23:39
PROVIDERS: ADMIT Family Medicine; ATTEND Family Medicine
DX: G24.09 Other drug induced dystonia (principal); R10.9 Unspecified abdominal pain; F17.200 Nicotine dependence, unspecified, uncomplicated; I12.9 Hypertensive chronic kidney disease with stage 1 through stage 4 chronic kidney disease, or unspecified chronic kidney disease; J45.909 Unspecified asthma, uncomplicated; K52.9 Noninfective gastroenteritis and colitis, unspecified; N18.9 Chronic kidney disease, unspecified; Z79.899 Other long term (current) drug therapy; Z87.440 Personal history of urinary (tract) infections; Z87.442 Personal history of urinary calculi; Z90.49 Acquired absence of other specified parts of digestive tract; D64.9 Anemia, unspecified; F32.9 Major depressive disorder, single episode, unspecified; F41.9 Anxiety disorder, unspecified; M54.9 Dorsalgia, unspecified; R52 Pain, unspecified
CPT/HCPCS: 36415; 80053; 80320; 80324; 80345; 80346; 80349; 80353; 80358; 80361; 82550; 83690; 83992; 85025; 96360; 99284; G0378; J0744; J1200; J1885; J2405; J7040

== ENCOUNTER 2017-07-01 12:55 | Emergency (ER) | payer MEDICAID ==
[2017-07-01 12:55] VITALS: BMI 24.0
[2017-07-01 13:08] VITALS: BP 153/82; PULSE 104; RESP 18; TEMP 99; O2SAT 100
--- NOTE | 2017-07-01 13:36 | ED PDOC ---
Lower Extremity Pain/Injury Time Seen by Provider: 07/01/17 13:13 Chief Complaint (Nursing): Lower Extremity Problem/Injury Chief Complaint (Provider): Right ankle pain History Per: Patient History/Exam Limitations: no limitations Onset/Duration Of Symptoms: Days (x5) Current Symptoms Are (Timing): Still Present Additional Complaint(s): Maggie is a 31 y/o female presenting to the ED for right foot pain, worsening for the past 5 days. States that on she banged the lateral aspect of her right foot into a table, now having pain to both lateral and medial aspects of the foot. Reports that when pressure is applied to those sites, she experiences a stabbing, shooting pain toward to the right knee. Of note, patient has history of bone spur to right heel. Denies taking any medications for pain relief. PMD: None Past Medical History Reviewed: Historical Data, Nursing Documentation, Vital Signs Vital Signs: Last Vital Signs Temp 99.0 F 07/01/17 13:05 Pulse 104 H 07/01/17 13:05 Resp 18 07/01/17 13:05 BP 153/82 H 07/01/17 13:05 Pulse Ox 100 07/01/17 13:05 - Medical History PMH: Anemia, Anxiety, Asthma, Depression, HTN, Kidney Stones, Chronic Kidney Disease Denies: HIV - Surgical History Surgical History: Cholecystectomy, (x2) - Family History Family History: States: Unknown Family Hx - Social History Current smoker - smoking cessation education provided: No Alcohol: None - Immunization History Hx Tetanus Toxoid Vaccination: No Hx Influenza Vaccination: No Hx Pneumococcal Vaccination: No - Home Medications Home Medications: Ambulatory Orders Medication Instructions Recorded Albuterol 0.042% [Albuterol 0.042% 3 ml INH DAILY PRN 06/14/17 Inhal Shell (1.25mg/3ml) UD] Benazepril/Hydrochlorothiazide 12.5 mg PO DAILY 06/14/17 [Benazepril-Hctz 5-6.25 mg Tab] Zolpidem [Ambien] 10 mg PO DAILY 06/14/17 Ciprofloxacin HCl [Cipro] 500 mg PO BID #14 tablet 06/15/17 Dicyclomine [Bentyl] 20 mg PO Q6 PRN #20 tab 06/15/17 Famotidine [Pepcid] 40 mg PO DAILY #20 tablet 06/15/17 Ondansetron ODT [Zofran ODT] 4 mg PO Q8 PRN #20 odt 06/15/17 metroNIDAZOLE [Flagyl] 500 mg PO Q8 #21 tab 06/15/17 - Allergies Allergies/Adverse Reactions: Allergies Allergy/AdvReac Type Severity Reaction Status Date / Time No Known Allergies Allergy Verified 06/14/17 06:46 Review of Systems ROS Statement: Except As Marked, All Systems Reviewed And Found Negative Musculoskeletal: Positive for: Foot Pain (Right) Physical Exam - Reviewed Nursing Documentation Reviewed: Yes Vital Signs Reviewed: Yes - Physical Exam Appears: Positive for: Well, Non-toxic, No Acute Distress Head Exam: Positive for: ATRAUMATIC, NORMAL INSPECTION, NORMOCEPHALIC Skin: Positive for: Normal Color, Warm, Dry Eye Exam: Positive for: Normal appearance Neck: Positive for: Normal Respiratory: Negative for: Respiratory Distress Extremity: Positive for: Normal ROM, Tenderness (Tenderness to lateral and medial aspects of right foot, w/ no bony point tenderness). Negative for: Deformity, Swelling Neurologic/Psych: Positive for: Alert, Oriented - ECG O2 Sat by Pulse Oximetry: 100 (RA) Pulse Ox Interpretation: Normal Medical Decision Making Medical Decision Making: Time: 13:49 Initial Plan: --Given Tylenol 650 mg PO --Pending X-Ray Right Foot -X-Ray reviewed by me, and is negative. Results discussed in detail with patient. Time: 14:23 --Patient complaining of persistent pain. LMP was last week. --Given Motrin 600 mg PO --Splint applied by operating room technologist Clinical Impression: Foot Pain Upon provider reevaluation patient is medically stable, and requires no further treatment in the ED at this time. Patient will be discharged home, advised to take Motrin prn for pain. Counseling was provided and all questions were answered regarding diagnosis and need for follow up with Podiatry Clinic. There is agreement to discharge plan. Return if symptoms persist or worsen. Scribe Attestation: Documented by May Sylvester, acting as a scribe for Anya Moya PA-C Provider Scribe Attestation: All medical record entries made by the Scribe were at my direction and personally dictated by me. I have reviewed the chart and agree that the record accurately reflects my personal performance of the history, physical exam, medical decision making, and the department course for this patient. I have also personally directed, reviewed, and agree with the discharge instructions and disposition. Disposition - Clinical Impression Clinical Impression: Foot pain - Patient ED Disposition Is Patient to be Admitted: No Counseled Patient/Family Regarding: Diagnosis, Need For Followup - Disposition Referrals: Podiatry Clinic [Outside] Disposition: Routine/Home Disposition Time: 14:23 Condition: GOOD Instructions: Foot Sprain (ED) Forms: [employer] (Kyrgyz)
--- NOTE | 2017-07-01 15:59 | RAD ---
PROCEDURE: Right Foot Radiographs. HISTORY: right foot pain, lateral - Walked into table COMPARISON: None. FINDINGS: BONES: Normal. No fracture. JOINTS: Normal. SOFT TISSUES: Normal. OTHER FINDINGS: None. IMPRESSION: No acute findings related to/accounting for the clinical presentation. Please note: No preliminary report/ innterpretation of this examination provided by emergency department personnel.
== END 2017-07-01 15:04 | disposition home or self-care (01) ==
LOC: H.ER 12:55
DX: M79.671 Pain in right foot (principal)